=== PATIENT | female | born 1980 | race African-American/Black ===

== ENCOUNTER 2016-07-20 21:05 | Inpatient (IN) | payer OTHER ==
[2016-07-20] MEDS: DEXTROSE 5%-LACTATED RINGERS 1,000 ML IV SCH (22:30)
[2016-07-20 23:29] LABS: BASOPHIL 0.2 % (0-2.0); EOSINOPHIL 0.2 % (0-4.5); MCH 28.8 pg (25.7-33.7); MCHC 32.9 g/dl (32.0-36.0); MEAN CELL VOLUME 87.5 fl (80-96); MEAN PLT VOLUME 9.8 fl (7.5-11.1); NEUTROPHILS 70.9 % (42.8-82.8); PLATELET COUNT 151 K/MM3 (134-434); WHITE BLOOD COUNT 7.9 K/mm3 (4.0-10.0)
[2016-07-20 23:56] LABS: INR 0.96 (0.82-1.09); PROTHROMBIN TIME (PATIENT) 10.6 SEC (9.98-11.88)
[2016-07-20] MEDS ORDERED: DINOPROSTONE 10 MG VAGINAL SUPPOSITORY VG ONE (23:56)
--- NOTE | 2016-07-21 00:01 | HP ---
Past Medical History - Admission Chief Complaint: Labor pain History of Present Illness: 35 yo @ 40 weeks gestation, admitted for induction of labor. History Source: Patient - Past Medical History ...: 2 ...Para: 1 ...EDC by Crissy: 07/20/16 - Past Surgical History Past Surgical History: Yes: None Hx Myomectomy: No Hx Transabdominal Cerclage: No - Smoking History Smoking history: Never smoked Have you smoked in the past 12 months: No - Alcohol/Substance Use Hx Alcohol Use: No History of Substance Use: reports: None - Social History Usual Living Arrangement: Yes: With Spouse History of Recent Travel: No Home Medications - Allergies Allergies/Adverse Reactions: Allergies Allergy/AdvReac Type Severity Reaction Status Date / Time No Known Drug Allergies Allergy Verified 06/03/15 19:17 - Home Medications Home Medications: Ambulatory Orders Vit Calc,Iron,Folic [ Vitamins] 1 each PO DAILY 07/21/16 Family Disease History - Family Disease History Family History: Unremarkable Review of Systems - Review of Systems Constitutional: reports: No Symptoms Eyes: reports: No Symptoms HENT: reports: No Symptoms Neck: reports: No Symptoms Cardiovascular: reports: No Symptoms Respiratory: reports: No Symptoms Gastrointestinal: reports: No Symptoms Genitourinary: reports: Pain Breasts: reports: No Symptoms Reported Musculoskeletal: reports: No Symptoms Integumentary: reports: No Symptoms Neurological: reports: No Symptoms Endocrine: reports: No Symptoms Hematology/Lymphatic: reports: No Symptoms Psychiatric: reports: No Symptoms Pain Intensity: 3 Physical Exam - Maternity Constitutional: Yes: Well Nourished Eyes: Yes: Conjunctiva Clear HENT: Yes: Atraumatic Neck: Yes: Supple Cardiovascular: Yes: Regular Rate and Rhythm Lungs: Clear to auscultation Breast(s): Yes: WNL - Abdominal Exam/OB Number of Fetuses: Single Presentation: Vertex - Vaginal Exam/OB Vaginal Bleediing: No Dilatation (cm): 2 Effacement (%): 70 Amniotic Membrane Status: Intact Presentation: Vertex/Position Station: -3 - Physical Exam Musculoskeletal: Yes: WNL Extremities: Yes: WNL Integumentary: Yes: WNL ...Motor Strength: LUE Psychiatric: Yes: Alert, Oriented - Labs Lab Results: CBC, BMP 07/20/16 22:45 Assessment/Plan IUP @ 40 weeks Cervidil induction Reevaluate in 12 hrs or before if indicated
[2016-07-21 00:02] LABS: CALCIUM 8.5 mg/dL (8.5-10.1); CREATININE 0.4 mg/dL (0.55-1.02)
[2016-07-21 01:48] VITALS: BMI 25.4
[2016-07-21] MEDS ORDERED: AMPICILLIN - 100 ML IVPB SCH (04:30)
[2016-07-21] MEDS ORDERED: AMPICILLIN - 100 ML IVPB ONE ×2 (04:30)
[2016-07-21] MEDS: DEXTROSE 5%-LACTATED RINGERS 1,000 ML IV SCH (08:00)
[2016-07-21] MEDS: AMPICILLIN - 100 ML IVPB SCH ×4 (09:10→20:30)
--- NOTE | 2016-07-21 09:29 | PN ---
Progress Note (short form) - Note Progress Note: Patient seen and evaluated. She's not in discomfort. FHR : Reactive [place] : + irregular contractions VE : 3-4 / 70% / -3 Cervidil removed A / P : IUP @ 40 weeks Status post cervidil induction Start Pitocin in 30 mins
[2016-07-21] MEDS ORDERED: OXYTOCIN 15 UNITS/ LR 250 ML 250 ML IVPB SCH (09:30)
[2016-07-21] MEDS ORDERED: BUTORPHANOL TARTRATE 1 MG/ML VIAL IVPUSH PRN (09:31)
[2016-07-21] MEDS: FENTANYL/BUPIVACAINE/NS/PF - PCEA - 50 ML DISP.SYRIN EP SCH (22:30)
[2016-07-22] MEDS: AMPICILLIN - 100 ML IVPB SCH ×3 (00:30→09:08)
[2016-07-22] MEDS ORDERED: CITRIC ACID/SODIUM CITRATE 30 ML UNIT-DOSE CUP PO ONE (01:34)
--- NOTE | 2016-07-22 01:34 | PN ---
Progress Note (short form) - Note Progress Note: Patient seen and evaluated. She c/o moderate discomfort; she's on Pitocin augmentation. She's status post epidural anesthesia but no relief. She's requesting . FHR : Reactive [place] : + rregular contractions VE : 8 / -1 AROM ( + meconium ) at midnight A / P : IUP @ 40 weeks Status post cervidil induction Failure to descent Pre op for primary
[2016-07-22] MEDS ORDERED: ONDANSETRON 4 MG/2 ML VIAL IVPB PRN (02:25)
[2016-07-22] MEDS ORDERED: IBUPROFEN 600 MG TABLET (FP) PO PRN (03:04)
[2016-07-22] MEDS ORDERED: METHYLERGONOVINE MALEATE 0.2 MG/1 ML AMP IM PRN (03:04)
[2016-07-22] MEDS ORDERED: oxyCODONE HCL 5 MG TABLET PO PRN (03:04)
--- NOTE | 2016-07-22 03:09 | OP ---
Operative Note - Note: Operative Date: 07/22/16 Pre-Operative Diagnosis: Failed induction / Arrest of descent Operation: Primary Low Transverse Findings: Meconium Baby boy in LOT position Post-Operative Diagnosis: Same as Pre-op Surgeon: Aylin Win Flavorings Compounder: Lisa Hennessy Anesthesia: Spinal Estimated Blood Loss (mls): 600
[2016-07-22] MEDS ORDERED: D5W-LR W/ 20 UNITS OXYTOCIN 1,000 ML IV SCH (03:15)
[2016-07-22 04:25] LABS: ARTERIAL BLD GAS O2 SATURATION 8.7 % (90-98.9); ARTERIAL BLOOD GAS BASE EXCESS -5.6 meq/l (-2-2); ARTERIAL BLOOD GAS HCO3 24.8 meq/L (22-26); ARTERIAL BLOOD GAS PO2 8.7 mmHg (80-100); ARTERIAL BLOOD GAS pH 7.18 (7.35-7.45)
[2016-07-22 04:26] LABS: PT. ON O2? NO
[2016-07-22 04:27] LABS: LPM/O2% 21%; TYPE OF O2 ROOM AIR
[2016-07-22] MEDS: PRENATAL VITAMINS W/ FOLIC ACID TABLET (FP) PO SCH (10:10)
[2016-07-22] MEDS: FERROUS SO4 325 MG TABLET (FP) PO SCH ×2 (10:10→21:49)
[2016-07-22] MEDS: IBUPROFEN 600 MG TABLET (FP) PO PRN ×2 (13:25→21:49)
[2016-07-22] MEDS: SIMETHICONE 80 MG TAB.CHEW (FP) PO PRN ×2 (13:27→21:50)
[2016-07-22] MEDS: ACETAMINOPHEN 325 MG TABLET (FP) PO PRN ×2 (13:27→21:50)
[2016-07-22] MEDS: FENTANYL/BUPIVACAINE/NS/PF - PCEA - 50 ML DISP.SYRIN EP SCH (23:19)
[2016-07-23] MEDS ORDERED: BISACODYL 10 MG SUPP.RECT RC PRN (03:05)
[2016-07-23 07:12] LABS: BASOPHIL 0.3 % (0-2.0); EOSINOPHIL 0.1 % (0-4.5); MCH 29.3 pg (25.7-33.7); MCHC 33.4 g/dl (32.0-36.0); MEAN CELL VOLUME 87.6 fl (80-96); MEAN PLT VOLUME 8.8 fl (7.5-11.1); NEUTROPHILS 84.2 % (42.8-82.8); PLATELET COUNT 138 K/MM3 (134-434); RDW 15.2 % (11.6-15.6); WHITE BLOOD COUNT 12.1 K/mm3 (4.0-10.0)
--- NOTE | 2016-07-23 08:02 | PN ---
Progress Note (short form) - Note Progress Note: Post op day#1.S/P C section under spinal anesyhesia with duramorph uneventful.Patient stable and c/o some pain for which she is on medication.No any anesthesia related problem.Patient DC from the anesthesia care.
--- NOTE | 2016-07-23 08:10 | PN ---
Post Progress Note Type of Delivery: Primary C/S Vital Signs: Vital Signs Temperature 98.6 F 07/23/16 02:00 Pulse Rate 86 07/23/16 02:00 Respiratory Rate 18 07/23/16 02:00 Blood Pressure 110/67 07/23/16 02:00 O2 Sat by Pulse Oximetry (%) 98 07/22/16 04:15 Breast Exam: Yes: Soft Uterus: Yes: Fundus Firm, Fundus below umbilicus Incision: Yes: Dressing dry and intact Abdomen/GI: Yes: Abdomen soft, Passing flatus, Tolerating PO. No: Abdominal Distention, Tender Lochia: Yes: Rubra Lochia, amount: Small Extremities: Yes: Calves non-tender. No: Edema Perineum: Yes: Intact Activity: Ambulating - Labs Labs: CBC WBC 12.1 K/mm3 (4.0-10.0) H D 07/23/16 06:30 RBC 2.76 M/mm3 (3.60-5.2) L D 07/23/16 06:30 Hgb 8.1 GM/dL (10.7-15.3) L D 07/23/16 06:30 Hct 24.2 % (32.4-45.2) L D 07/23/16 06:30 MCV 87.6 fl (80-96) 07/23/16 06:30 MCHC 33.4 g/dl (32.0-36.0) 07/23/16 06:30 RDW 15.2 % (11.6-15.6) 07/23/16 06:30 Plt Count 138 K/MM3 (134-434) 07/23/16 06:30 MPV 8.8 fl (7.5-11.1) D 07/23/16 06:30 Neutrophils % 84.2 % (42.8-82.8) H 07/23/16 06:30 Lymphocytes % 9.7 % (8-40) D 07/23/16 06:30 Monocytes % 5.7 % (3.8-10.2) 07/23/16 06:30 Eosinophils % 0.1 % (0-4.5) 07/23/16 06:30 Basophils % 0.3 % (0-2.0) 07/23/16 06:30 Problem List - Problems (1) delivery delivered Code(s): O82 - ENCOUNTER FOR DELIVERY WITHOUT INDICATION (2) Anemia Code(s): D64.9 - ANEMIA, UNSPECIFIED Assessment/Plan 35 y/o POD#1 s/p primary delivery, pt doing well - AFVSS - Hgb 8.1 post op, pt asymptomatic, will continue with vitamins and PO iron - regular diet, PO pain meds - routine care
[2016-07-23] MEDS: PRENATAL VITAMINS W/ FOLIC ACID TABLET (FP) PO SCH (09:52)
[2016-07-23] MEDS: CEFAZOLIN 2 GM/D5W 50 ML IVPB SCH ×2 (09:52→17:00)
[2016-07-23] MEDS: FERROUS SO4 325 MG TABLET (FP) PO SCH ×2 (09:52→21:39)
[2016-07-23] MEDS ORDERED: DIPHTH,PERTUSS(ACELL),TET 0.5 ML DISP.SYRIN IM ONE (10:00)
[2016-07-23] MEDS: IBUPROFEN 600 MG TABLET (FP) PO PRN (10:12)
[2016-07-23] MEDS: ACETAMINOPHEN 325 MG TABLET (FP) PO PRN (10:13)
[2016-07-23] MEDS: SIMETHICONE 80 MG TAB.CHEW (FP) PO PRN ×2 (10:14→21:39)
[2016-07-23] MEDS: CLINDAMYCIN 600MG PREMIX IVPB 50 ML IVPB SCH ×2 (11:50→17:43)
[2016-07-24] MEDS: CEFAZOLIN 2 GM/D5W 50 ML IVPB SCH ×3 (01:08→17:10)
[2016-07-24] MEDS: CLINDAMYCIN 600MG PREMIX IVPB 50 ML IVPB SCH ×3 (02:00→17:39)
[2016-07-24] MEDS: IBUPROFEN 600 MG TABLET (FP) PO PRN ×3 (06:45→21:46)
[2016-07-24] MEDS: ACETAMINOPHEN 325 MG TABLET (FP) PO PRN ×3 (06:45→21:49)
[2016-07-24] MEDS: SIMETHICONE 80 MG TAB.CHEW (FP) PO PRN ×3 (06:45→21:45)
[2016-07-24] MEDS: FERROUS SO4 325 MG TABLET (FP) PO SCH ×2 (09:35→21:45)
[2016-07-24] MEDS: PRENATAL VITAMINS W/ FOLIC ACID TABLET (FP) PO SCH (09:35)
[2016-07-24] MEDS: FENTANYL/BUPIVACAINE/NS/PF - PCEA - 50 ML DISP.SYRIN EP SCH (11:07)
--- NOTE | 2016-07-24 13:04 | PN ---
Post Progress Note - Subjective Subjective: Pt seen/evaluated this a.m. Still with elevated temp early this a.m. Tmax overnight 100.3. Pt with tender abdomen/uterine fundus. 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 Pt denies f/c. NO CP/SOB/[place]ST[place]. tolerating diet , ambulating, passing flatus. Type of Delivery: Primary C/S Vital Signs: Vital Signs Temperature 97.5 F L 07/24/16 10:00 Pulse Rate 73 07/24/16 10:00 Respiratory Rate 20 07/24/16 10:00 Blood Pressure 118/75 07/24/16 10:00 O2 Sat by Pulse Oximetry (%) 98 07/22/16 04:15 Breast Exam: Yes: Soft Uterus: Yes: Fundus below umbilicus, Other (tender fundus upon palpation) Abdomen/GI: Yes: Abdomen soft, Tender, Passing flatus, Tolerating PO. No: Abdominal Distention Lochia, amount: Small Extremities: Yes: Calves non-tender. No: Edema Perineum: Yes: Intact Activity: Ambulating - Labs Labs: CBC WBC 12.1 K/mm3 (4.0-10.0) H D 07/23/16 06:30 RBC 2.76 M/mm3 (3.60-5.2) L D 07/23/16 06:30 Hgb 8.1 GM/dL (10.7-15.3) L D 07/23/16 06:30 Hct 24.2 % (32.4-45.2) L D 07/23/16 06:30 MCV 87.6 fl (80-96) 07/23/16 06:30 MCHC 33.4 g/dl (32.0-36.0) 07/23/16 06:30 RDW 15.2 % (11.6-15.6) 07/23/16 06:30 Plt Count 138 K/MM3 (134-434) 07/23/16 06:30 MPV 8.8 fl (7.5-11.1) D 07/23/16 06:30 Neutrophils % 84.2 % (42.8-82.8) H 07/23/16 06:30 Lymphocytes % 9.7 % (8-40) D 07/23/16 06:30 Monocytes % 5.7 % (3.8-10.2) 07/23/16 06:30 Eosinophils % 0.1 % (0-4.5) 07/23/16 06:30 Basophils % 0.3 % (0-2.0) 07/23/16 06:30 Problem List - Problems (1) delivery delivered Code(s): O82 - ENCOUNTER FOR DELIVERY WITHOUT INDICATION (2) Anemia Code(s): D64.9 - ANEMIA, UNSPECIFIED (3) Endometritis following delivery Code(s): O86.12 - ENDOMETRITIS FOLLOWING DELIVERY Assessment/Plan 35 y/o POD#2 s/p primary delivery, pt with suspected endometritis - Afebrile since 8am yesterday, Tmax overnight 100.3 Pt currently on antibiotics, will monitor temps. - Hgb 8.1 post op, pt asymptomatic, will continue with vitamins and PO iron - Endometritis - continue with IV antibiotics, once 24 hours afebrile, will consider d/c antibiotics and monitoring before discharge home - regular diet, PO pain meds - routine care
--- NOTE | 2016-07-24 14:50 | PATH ---
Surgical Pathology Report Patient Name: KAYLAH BARRERA Med. Rec. 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 Specimen(s) Received PLACENTA Clinical History 35 year-old female, primary Final Diagnosis PLACENTA, DELIVERY: FOCALLY DISRUPTED THIRD TRIMESTER PLACENTA WITH INTERVILLOUS FIBRIN DEPOSITION, THREE VESSEL UMBILICAL CORD AND UNREMARKABLE PLACENTAL MEMBRANES. Electronically Signed Ed Her M.D. Gross Description The specimen is received fresh labeled placenta and is a 613 gram, 19.5 x 18.5 x 2.7 cm. placenta with attached membranes and umbilical cord. The attached membranes are ta green, meconium stained, translucent with focal opacities and insert marginally. The umbilical cord measures 26 cm. in length and averages 1.1 cm. in diameter. The cord inserts eccentrically, 3.5 cm. to the nearest margin. No true knots or strictures are identified. Cut surface of the umbilical cord reveals 3 vessels. The surface is lopez green, meconium stained with minimal fibrin deposition and appropriate caliber vessels. The maternal surface is red-brown with focal defects. Sectioning reveals red-brown, spongy parenchyma. No lesions are identified. Computer Forensics Examiner sections are submitted in three cassettes as follows: 1- membrane rolls and umbilical cord; 2-3- full thickness sections of placenta. 07/23/2016 [facility]07/23/2016
[2016-07-25] MEDS: CEFAZOLIN 2 GM/D5W 50 ML IVPB SCH (01:31)
[2016-07-25] MEDS: CLINDAMYCIN 600MG PREMIX IVPB 50 ML IVPB SCH (01:52)
--- NOTE | 2016-07-25 06:36 | PN ---
Post Note - Post Date of Delivery: 07/22/16 Post Day: 3 Vital Signs: Vital Signs - 24 hr 07/24/16 07/24/16 07/24/16 09:00 10:00 14:00 Temperature 97.5 F L 97.8 F Pulse Rate 73 75 Respiratory 20 20 20 Rate Blood Pressure 118/75 113/66 07/24/16 07/24/16 07/25/16 17:22 21:39 01:36 Temperature 98.1 F 98.4 F 97.5 F L Pulse Rate 75 75 Respiratory 20 20 Rate Blood Pressure 117/61 116/55 07/25/16 05:53 Temperature 97.9 F Pulse Rate Respiratory Rate Blood Pressure - Subjective Subjective: No Complaints, Other (Pt desires to go home) - Objective Afebrile: Yes Breast: Not engorged Abdomen: Soft, Non-tender Uterus: Fundus firm, Non-tender Vagina: Scant lochia Extremities: Non-tender - Assessment/Plan (1) delivery delivered Assessment: Other (POD3) Plan: Routine Care, Other (DC home RTO1 week DC IV abs & IV)
[2016-07-25 08:04] LABS: BASOPHIL 0.3 % (0-2.0); EOSINOPHIL 1.6 % (0-4.5); MCH 29.2 pg (25.7-33.7); MCHC 32.8 g/dl (32.0-36.0); MEAN CELL VOLUME 88.9 fl (80-96); MEAN PLT VOLUME 8.1 fl (7.5-11.1); NEUTROPHILS 72.4 % (42.8-82.8); PLATELET COUNT 195 K/MM3 (134-434); RDW 15.4 % (11.6-15.6); WHITE BLOOD COUNT 8.2 K/mm3 (4.0-10.0)
[2016-07-25] MEDS: PRENATAL VITAMINS W/ FOLIC ACID TABLET (FP) PO SCH (09:46)
[2016-07-25] MEDS: FERROUS SO4 325 MG TABLET (FP) PO SCH (09:47)
[2016-07-25 11:42] VITALS: BP 113/61; PULSE 74; TEMP 98.3
== END 2016-07-25 11:35 | disposition home or self-care (01) | DRG 540 ==
LOC: JLDR 21:05 → J3W 07-22 05:45
PROVIDERS: ADMIT Obstetrics & Gynecology; ATTEND Obstetrics & Gynecology
PROC: 3E0P7GC Introduction of Other Therapeutic Substance into Female Reproductive, Via Natural or Artificial Opening (ICD-10-PCS; 2016-07-20)
PROC: 10D00Z1 Extraction of Products of Conception, Low, Open Approach (ICD-10-PCS; principal; 2016-07-22)
PROC: 30233S1 Transfusion of Nonautologous Globulin into Peripheral Vein, Percutaneous Approach (ICD-10-PCS; 2016-07-22)
DX: O62.0 Primary inadequate contractions (principal); O62.1 Secondary uterine inertia; O77.0 Labor and delivery complicated by meconium in amniotic fluid; O90.81 Anemia of the puerperium; O86.12 Endometritis following delivery; Z3A.40 40 weeks gestation of pregnancy; Z37.0 Single live birth
CPT/HCPCS: 36415; 36600; 71010-TC; 80048; 82803; 85025; 85461; 85610; 85730; 86593; 86850; 86900; 86901; 86999; 87040; 87086; 88307-TC; 90715; 94010

== ENCOUNTER 2016-09-24 14:32 | Emergency (ER) | payer OTHER ==
[2016-09-24 14:57] VITALS: BP 133/67; PULSE 74; TEMP 98; BMI 21.9
--- NOTE | 2016-09-24 15:12 | PDOC ---
History of Present Illness - General Chief Complaint: Sore Throat Stated Complaint: SORE THROAT Time Seen by Provider: 09/24/16 15:00 History Source: Patient Exam Limitations: No Limitations - History of Present Illness Initial Comments: 09/24/16 15:20 36-year-old female presents to the ED with complaints of intermittent sore throat she describes an itchy sensation along with nasal itching and drainage. Patient states has use saline nasal spray for her symptoms above with no relief. Patient states was also started often just with no relief. Patient denies fever, chills, difficulty swallowing, neck stiffness, history of thyroid disease. Pt has not seen her PCP and decided come to the ER today. Timing/Duration: reports: other Severity: reports: mild Associated Symptoms: reports: nasal drainage, sore throat Past History - Travel Traveled outside of the country in the last 30 days: No Close contact w/someone who was outside of country & ill: No - Past Medical History Allergies/Adverse Reactions: Allergies Allergy/AdvReac Type Severity Reaction Status Date / Time No Known Drug Allergies Allergy Verified 09/24/16 14:47 Home Medications: Ambulatory Orders Vit Calc,Iron,Folic [ Vitamins] 1 each PO DAILY 07/21/16 Ibuprofen [Motrin -] 600 mg PO QID PRN #28 tablet 07/25/16 Fluticasone Propionate [Flonase Allergy Relief] 2 spray NS BID #1 spray.susp 12/01 Loratadine [Claritin] 10 mg PO DAILY #14 tablet 09/24/16 Asthma: No Cancer: No Cardiac Disorders: No Diabetes: No HTN: No Seizures: No Thyroid Disease: No Other medical history: denies - Immunization History Immunization Up to Date: Yes - Psycho/Social/Smoking Cessation Hx Anxiety: No Suicidal Ideation: No Smoking History: Never smoked Have you smoked in the past 12 months: No Hx Alcohol Use: No Drug/Substance Use Hx: No Substance Use Type: None Hx Substance Use Treatment: No Patient Lives Alone: No Lives with/in: spouse/SO Review of Systems - Review of Systems Able to Perform ROS?: Yes Constitutional: No: Symptoms Reported HEENTM: Yes: Nose Congestion, Throat Pain. No: Throat Swelling, Mouth Pain, Dental Problems, Difficulty Swallowing, Mouth Swelling Respiratory: No: Symptoms reported Cardiac (ROS): No: Symptoms Reported Integumentary: No: Symptoms Reported Neurological: No: Symptoms reported Hematologic/Lymphatic: No: Symptoms Reported *Physical Exam - Vital Signs Last Vital Signs Temp Pulse Resp BP Pulse Ox 98.0 F 74 18 133/67 100 09/24/16 14:50 09/24/16 14:50 09/24/16 14:50 09/24/16 14:50 09/24/16 14:50 - Physical Exam General Appearance: Yes: Nourished, Appropriately Dressed. No: Apparent Distress HEENT: positive: EOMI, AMBIKA, Normal Voice, TMs Normal, Pharynx Normal. negative : Pale Conjunctivae Neck: positive: Normal Thyroid, Supple. negative: Lymphadenopathy (R), Lymphadenopathy (L) Respiratory/Chest: positive: Lungs Clear, Normal Breath Sounds. negative: Respiratory Distress, Accessory Muscle Use Integumentary: positive: Normal Color, Warm, Moist Neurologic: positive: Motor Strength 5/5 (ambulatory) Medical Decision Making - Medical Decision Making 09/24/16 15:24 Patient complains of sore throat for the past 5 months with no relief with over- the-counter lozenges. Patient has had no acute findings and likely due to postnasal drip causing irritation. Patient recommended to follow-up with ENT and in the interim take Flonase and Claritin. *DC/Admit/Observation/Transfer Diagnosis at time of Disposition: Sore throat - Discharge Dispostion Disposition: HOME Condition at time of disposition: Good - Prescriptions Prescriptions: Loratadine [Claritin] 10 mg PO DAILY #14 tablet Fluticasone Propionate [Flonase Allergy Relief] 2 spray NS BID #1 spray.susp - Referrals Referrals: Arias Kirby MD [Staff Physician] - - Patient Instructions Printed Discharge Instructions: Sore Throat Additional Instructions: I recommend you drink plenty of fluids, keep nasal passages clear, and take Claritin along with Flonase as recommended. I also do recommend you call Dr. Kirby to make an appointment.
== END 2016-09-24 15:37 | disposition home or self-care (01) ==
LOC: JER 14:32
DX: J02.9 Acute pharyngitis, unspecified (principal)
CPT/HCPCS: 99281-25